=== PATIENT | male | born 1970 | race Caucasian/White ===

== ENCOUNTER 2018-06-03 16:48 | Emergency (ER) | payer BC, OTHER ==
--- NOTE | 2018-06-03 17:47 | ER Document Report ---
ED Medical Screen (RME) - General Chief Complaint: Foreign Body in Eye Stated Complaint: LEFT EYE IRRITATION Time Seen by Provider: 06/03/18 17:47 Mode of Arrival: Ambulatory Information source: Patient Notes: Patient complains of left eye irritation. Reports started hurting afternoon after cleaning the grill. reports irritation feeling, denies pain, reports light hurts eye. was seen by dr falcon who reports he saw something in his eye at "0600". I have greeted and performed a rapid initial assessment of this patient. A comprehensive ED assessment and evaluation of the patient, analysis of test results and completion of the medical decision making process will be conducted by additional ED providers. TRAVEL OUTSIDE OF THE [place] IN LAST 30 DAYS: No - Related Data Allergies/Adverse Reactions: No Known Allergies Allergy (Unverified 06/03/18 16:54) Physical Exam - Vital signs Vitals: Temp Pulse Resp BP Pulse Ox 97.7 F 57 L 16 124/78 97 06/03/18 17:04 06/03/18 17:04 06/03/18 17:04 06/03/18 17:04 06/03/18 17:04 Course - Vital Signs Vital signs: Temp Pulse Resp BP Pulse Ox 97.7 F 57 L 16 124/78 97 06/03/18 17:04 06/03/18 17:04 06/03/18 17:04 06/03/18 17:04 06/03/18 17:04
[2018-06-03] MEDS ORDERED: TETRACAINE HCL 0.5% OPH SOLN 4 ML OD ONE (17:51)
[2018-06-03] MEDS ORDERED: KETOROLAC TROMETHAMINE 0.45% 4 DROP/0.4 ML DROPERETTE OS ONE (19:42)
--- NOTE | 2018-06-03 19:43 | ER Document Report ---
ED General - General Chief Complaint: Foreign Body in Eye Stated Complaint: LEFT EYE IRRITATION Time Seen by Provider: 06/03/18 17:47 Primary Care Provider: RAVEN GUTIERREZ PA-C [Primary Care Provider] - Follow up as needed SHIRA JOHANSEN MD [ACTIVE STAFF] - Follow up tomorrow Mode of Arrival: Ambulatory Notes: 48-year-old male presents with left eye pain that has been ongoing for 2 days. Patient states that he was cleaning his grill with a scrubber when he had pain to his left eye that has gradually worsened. Patient was sent here by his primary care physician for removal of foreign body that was noted in his office. Patient denies any visual changes but does admit to sensitivity to light. He does not wear contacts or glasses. TRAVEL OUTSIDE OF THE [place] IN LAST 30 DAYS: No - HPI Onset: Other Onset/Duration: Persistent, Worse Quality of pain: Throbbing Severity: Moderate Associated symptoms: denies: Chest pain, Earache, Fever, Headache Exacerbated by: Other - Light exposure Relieved by: Denies Similar symptoms previously: No Recently seen / treated by doctor: No - Related Data Allergies/Adverse Reactions: No Known Allergies Allergy (Unverified 06/03/18 16:54) Past Medical History - General Information source: Patient - Social History Smoking Status: Smoker,Current Status Unk Chew tobacco use (# tins/day): Yes Frequency of alcohol use: None Drug Abuse: None Lives with: Family Family History: Reviewed & Not Pertinent Patient has suicidal ideation: No Patient has homicidal ideation: No - Medical History Medical History: Negative Renal/ Medical History: Denies: Hx Peritoneal Dialysis Review of Systems - Review of Systems Notes: REVIEW OF SYSTEMS: CONSTITUTIONAL : Denies fever, chills, or sweats. Denies recent illness. Denies weight loss, recent hospitalizations. EENT: Denies visual changes. Denies sore throat, oral lesions, difficulty swallowing. CARDIOVASCULAR: Denies chest pain. Denies palpitations. Denies lower extremity edema. RESPIRATORY: Denies cough. Denies shortness of breath, wheezing. GASTROINTESTINAL: Denies abdominal pain or distention. Denies nausea, vomiting, or diarrhea. Denies blood in vomitus, stools, or per rectum. Denies black, tarry stools. Denies constipation. GENITOURINARY: Denies difficulty urinating, painful urination, frequency, blood in urine, testicular pain or penile discharge. MUSCULOSKELETAL: Denies back or neck pain or stiffness. Denies joint pain or swelling. SKIN: Denies rash, lesions or sores. HEMATOLOGIC : Denies easy bruising or bleeding. LYMPHATIC: Denies swollen glands. NEUROLOGICAL: Denies confusion or altered mental status. Denies loss of consciousness. Denies dizziness or lightheadedness. Denies headache. Denies weakness or paralysis. Denies problems difficulty with ambulation, slurred speech. Denies sensory loss, numbness, or tingling. Denies seizures. PSYCHIATRIC: Denies anxiety or stress. Denies depression, suicidal ideation, or Physical Exam - Vital signs Vitals: Temp Pulse Resp BP Pulse Ox 97.7 F 57 L 16 124/78 97 06/03/18 17:04 06/03/18 17:04 06/03/18 17:04 06/03/18 17:04 06/03/18 17:04 - Notes Notes: PHYSICAL EXAMINATION: GENERAL: Well-appearing, well-nourished and in no acute distress. HEAD: Atraumatic, normocephalic. EYES: Pupils equal round and reactive to light, extraocular movements intact, sclera anicteric, erythema of the left conjunctive. Foreign body noted at the 6 o'clock position of the left cornea. No evidence of corneal abrasion with fluorescein application. Foreign body was removed. ENT: Nares patent, oropharynx clear without exudates. Moist mucous membranes. NECK: Normal range of motion, supple without lymphadenopathy LUNGS: Breath sounds clear to auscultation bilaterally and equal. No wheezes rales or rhonchi. HEART: Regular rate and rhythm without murmurs ABDOMEN: Soft, nontender, nondistended abdomen. No guarding, no rebound. No masses appreciated. Musculoskeletal: Normal range of motion, no pitting or edema. No cyanosis. NEUROLOGICAL: Cranial nerves grossly intact. Normal speech, normal gait. Normal sensory, motor exams PSYCH: Normal mood, normal affect. SKIN: Warm, Dry, normal turgor, no rashes or lesions noted. - HEENT Visual acuity- Right eye: 20/25 Visual acuity- Left eye: 20/25 Visual acuity- Both eyes: 20/25 Corrective lenses worn: No Course - Re-evaluation Re-evalutation: 06/04/18 11:57 48-year-old male presents with left eye pain for 2 days. Found to have a foreign body in the left eye which was removed after pain irrigation of the eye and tetracaine placement. 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 Patient was evaluated and treated as appropriate for the patient's presenting symptoms and complaint, with consideration of any critical or life threatening conditions that may be associated with their obtained history and exam as noted above. All results were discussed with patient . Patient provided the opportunity to ask questions, and express concerns. Patient was educated on treatments based on their presumed diagnosis as noted above. At this time we will discharge the patient with return precautions and follow-up re commendations. Verbal discharge instructions given a the bedside. Medication warnings reviewed. Patient is in agreement with this plan and has verbalized understanding of return precautions. After careful consideration I feel that that patient can be safely discharged from the emergency department, they were advised to followup with a primary care physician in 2-3 days. Dictation on this chart was performed using voice recognition software and may result in unintended grammatical, spelling, syntax or errors. - Vital Signs Vital signs: Temp Pulse Resp BP Pulse Ox 97.7 F 59 L 16 142/86 H 100 06/03/18 20:05 06/03/18 20:05 06/03/18 17:04 06/03/18 20:05 06/03/18 20:05 Procedures - Eye Procedure Left Time completed: 11:56 Eye Irrigated w/ Saline (ccs): 300 Foreign body removal: Left - Foreign body removed from the 6 o'clock position of the left cornea. No associated corneal abrasion. No retained foreign body under the eyelid which was inverted. Fluorescein applied: Left Antibiotic Oinment/Drps Admin: Left eye Slit lamp used: Yes Discharge - Discharge Clinical Impression: Foreign body in eye Qualifiers: Encounter type: initial encounter Laterality: left Qualified Code(s): T15.92XA - Foreign body on external eye, part unspecified, left eye, initial encounter Corneal abrasion Qualifiers: Encounter type: initial encounter Laterality: left Qualified Code(s): S05.02XA - Injury of conjunctiva and corneal abrasion without foreign body, left eye, initial encounter Condition: Good Disposition: HOME, SELF-CARE Instructions: Conjunctival Foreign Body ([facility]), Corneal Abrasion ([facility]) Prescriptions: Erythromycin Base [Erythromycin Oph 1 Gm Oint Ud] 1 applic OS Q4H #1 tube Referrals: RAVEN GUTIERREZ PA-C [Primary Care Provider] - Follow up as needed SHIRA JOHANSEN MD [ACTIVE STAFF] - Follow up tomorrow
[2018-06-03] MEDS ORDERED: ERYTHROMYCIN 0.5% OPH OINT 1 GM UNIT DOSE OS SCH ×2 (19:45→20:00)
[2018-06-03 20:08] VITALS: BP 142/86
[2018-06-04] MEDS ORDERED: ERYTHROMYCIN 0.5% OPH OINT 1 GM UNIT DOSE OS SCH
== END 2018-06-03 20:08 | disposition home or self-care (01) ==
LOC: ER 16:48
DX: T15.92XA Foreign body on external eye, part unspecified, left eye, initial encounter (principal); S00.252A Superficial foreign body of left eyelid and periocular area, initial encounter; X58.XXXA Exposure to other specified factors, initial encounter; Y93.G2 Activity, grilling and smoking food
CPT/HCPCS: 99283; 65222; J3490

== ENCOUNTER → 2020-03-18 | Outpatient (CLI) | payer BC ==
[~2020-03-18] MED LIST: COVID-19 VACCINE (PFIZER)/PF 30 MCG/0.3 ML VIAL IM ONE; EPINEPHRINE INJ/PF 1 MG/1 ML AMPULE IM PRN
== END ==
LOC: EMPHEALTH 16:29
PROVIDERS: ATTEND Internal Medicine
DX: Z23 Encounter for immunization (principal)
CPT/HCPCS: 91300